=== PATIENT | male | born 1995 | race Caucasian/White ===

== ENCOUNTER 2017-07-17 19:13 | Emergency (ER) | payer BC, MEDICAID ==
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
[2017-07-17 21:40] VITALS: BP 116/72
== END 2017-07-17 21:39 | disposition home or self-care (01) ==
LOC: ED 19:13
DX: Z04.1 Encounter for examination and observation following transport accident (principal); F84.0 Autistic disorder; F31.9 Bipolar disorder, unspecified
CPT/HCPCS: 99281